=== PATIENT | male | born 1985 | race Caucasian/White ===

== ENCOUNTER 2019-09-29 08:52 | Emergency (ER) | payer SELFPAY ==
[~2019-09-29] VITALS: Ht 157.5 cm; Wt 54.0 kg
[2019-09-29 09:10] VITALS: BP 121/74
== END 2019-09-29 09:49 | disposition left against medical advice (07) ==
LOC: ER 09:32
DX: F29 Unspecified psychosis not due to a substance or known physiological condition (principal)
CPT/HCPCS: 99284